=== PATIENT | male | born 1980 | race Caucasian/White ===

== ENCOUNTER → 2018-01-05 20:06 | Outpatient (CLI) | payer OTHER, SELFPAY ==
--- NOTE | 2018-01-05 20:10 | DI.RAD.S_ITS ---
PROCEDURE: XR KNEE LT 3V INDICATIONS: Pain in bilateral knees and ankles TECHNIQUE: 3 views of the knee were acquired. COMPARISON: [facility], CR, XR KNEE ARTHRITIC SERIES RT, 01/30/2017, 9:11. FINDINGS: Bones: No fractures or dislocations. No suspicious bony lesions. Mild joint space narrowing in the lateral femorotibial compartment. Soft tissues: Small joint effusion. No suspicious soft tissue calcifications. IMPRESSION: 1. No fracture or dislocation. 2. Mild joint space narrowing in the lateral femorotibial compartment. 3. Small knee joint effusion. Dictated by: Cathy Reyna M.D. on 01/06/2018 at 16:57 Approved by: Cathy Reyna M.D. on 01/06/2018 at 16:58
--- NOTE | 2018-01-05 20:10 | DI.RAD.S_ITS ---
PROCEDURE: XR ANKLE RT MIN 3V INDICATIONS: Pain in bilateral knees and ankles TECHNIQUE: 3 views of the ankle were acquired. COMPARISON: None. FINDINGS: Bones: No fractures or dislocations. Ankle mortise is normally aligned. No suspicious bony lesions. Soft tissues: No tibiotalar joint effusion. Achilles tendon appears normal. IMPRESSION: No fracture or dislocation. Dictated by: Cathy Reyna M.D. on 01/06/2018 at 16:58 Approved by: Cathy Reyna M.D. on 01/06/2018 at 17:00
--- NOTE | 2018-01-05 20:10 | DI.RAD.S_ITS ---
PROCEDURE: XR ANKLE LT MIN 3V INDICATIONS: Pain in bilateral knees and ankles TECHNIQUE: 3 views of the ankle were acquired. COMPARISON: None. FINDINGS: Bones: No fractures or dislocations. Ankle mortise is normally aligned. No suspicious bony lesions. Soft tissues: No tibiotalar joint effusion. Achilles tendon appears normal. IMPRESSION: No fracture or dislocation. Dictated by: Cathy Reyna M.D. on 01/06/2018 at 16:56 Approved by: Cathy Reyna M.D. on 01/06/2018 at 16:57
--- NOTE | 2018-01-05 20:10 | DI.RAD.S_ITS ---
PROCEDURE: XR KNEE RT 3V INDICATIONS: Pain in bilateral knees and ankles TECHNIQUE: 3 views of the knee were acquired. COMPARISON: [facility], CR, XR KNEE ARTHRITIC SERIES RT, 01/30/2017, 9:11. [facility], MR, MR KNEE RT W CON, 02/20/2017, 16:02. FINDINGS: Bones: No fractures or dislocations. No suspicious bony lesions. Soft tissues: Small joint effusion. No suspicious soft tissue calcifications. IMPRESSION: 1. No fracture or dislocation. 2. Small knee joint effusion. Dictated by: Cathy Reyna M.D. on 01/06/2018 at 17:00 Approved by: Cathy Reyna M.D. on 01/06/2018 at 17:01
== END ==
PROVIDERS: Visit Provider Physician Assistant
DX: M25.561 Pain in right knee (principal); M25.562 Pain in left knee; M25.571 Pain in right ankle and joints of right foot; M25.572 Pain in left ankle and joints of left foot; G89.29 Other chronic pain; M25.462 Effusion, left knee; M25.461 Effusion, right knee
CPT/HCPCS: 73562; 73610

== ENCOUNTER → 2020-03-14 07:56 | Outpatient (CLI) | payer OTHER, SELFPAY ==
--- NOTE | 2020-03-14 07:59 | DI.US.S_ITS ---
PROCEDURE: US ABDOMEN LIMITED INDICATIONS: LEFT LOWER QUADRANT PAIN - RULE OUT HERNIA TECHNIQUE: Real-time focused scanning was performed of the left lower quadrant/inguinal region, with image documentation. COMPARISON: None. FINDINGS: No evidence of abdominal wall hernia in the area of pain. There is a subcentimeter intramuscular focus of hypoechogenicity, possibly cystic within the deep aspect of the left rectus muscle. No increased intramuscular or surrounding vascular flow. IMPRESSION: 1. No evidence of abdominal wall hernia. 2. Tiny avascular intramuscular cyst of uncertain clinical significance or etiology. This may be incidental versus evidence of a minimal remote muscular injury. Dictated by: Aria Quan M.D. on 03/14/2020 at 8:55 Approved by: Aria Quan M.D. on 03/14/2020 at 8:59
== END ==
PROVIDERS: PCP Family Medicine; Referring Provider Physician Assistant; Visit Provider Physician Assistant
DX: R10.32 Left lower quadrant pain (principal)
CPT/HCPCS: 76705

== ENCOUNTER 2021-08-07 20:07 | Emergency (ER) | payer OTHER, SELFPAY ==
[2021-08-07 20:16] VITALS: BP 150/73; PULSE 57; RESP 20; TEMP 36.6; O2SAT 99
[2021-08-07 21:19] LABS: Alanine Aminotransferase 153 IU/L (<50); Albumin 4.6 g/dL (3.5-5.0); Albumin Globulin Ratio 1.4 (1.0-2.8); Alkaline Phosphatase 121 U/L (38-126); Aspartate Aminotransferase 98 IU/L (17-59); BUN Creatinine Ratio 18.4 (6-22); Bilirubin Total 0.9 mg/dL (0.2-1.3); Blood Urea Nitrogen 14 mg/dL (9-20); Calcium 9.9 mg/dL (8.4-10.2); Carbon Dioxide 31 mmol/L (22-32); Chloride 102 mmol/L (98-107); Estimated Glomerular Filt Rate > 60.0 mL/min (>60); Globulin 3.3 g/dL (1.7-4.1); Glucose 96 mg/dL (70-100); HEMOLYSIS 46 (0-50); Lipase 114 U/L (23-300); Potassium 4.2 mmol/L (3.4-5.1); Sodium 139 mmol/L (137-145); Total Protein 7.9 g/dL (6.3-8.2)
[2021-08-07 21:33] LABS: Add Manual Diff / Slide Review NO; Basophils Absolute Auto 100 /uL (0-100); Basophils Percent Auto 0.7 % (0-2); Eosinophils Absolute Auto 200 /uL (0-450); Eosinophils Percent Auto 2.1 % (2-4); Hemoglobin 15.3 g/dL (13.5-17.5); Lymphocytes Absolute Auto 2000 /uL (1100-4500); Lymphocytes Percent Auto 26.9 % (25-40); Mean Corpuscular HGB Conc 34.8 % (30-36); Mean Corpuscular Hemoglobin 32.3 PG (26-34); Mean Corpuscular Volume 92.8 fL (80-100); Monocytes Absolute Auto 600 /uL (0-900); Monocytes Percent Auto 8.8 % (3-14); Neutrophils Absolute Auto 4500 /uL (1500-7000); Neutrophils Percent Auto 61.5 % (50-75); Platelet Count 207 X10^3/uL (150-400); Red Blood Cell Count 4.74 X10^6/uL (4.5-5.9); Red Cell Distribution Width 12.5 % (11.6-14.8); White Blood Cell Count 7.4 X10^3/uL (4.5-11.0)
[2021-08-07] MEDS: SODIUM CHLORIDE 0.9% 1,000 ML 1000 ML IV ×2 (21:37→23:15)
--- NOTE | 2021-08-07 22:53 | ED_ITS ---
HPI - Abdominal Pain General Chief Complaint: Abdominal Pain Stated Complaint: mid uppergastric pain, hx pancreatitis Time Seen by Provider: 08/07/21 22:53 Source: patient Mode of arrival: Ambulatory Limitations: no limitations History of Present Illness HPI narrative: This is a 32-year-old male who comes in with complaint of acute onset of epigastric upper abdominal pain feels similar to when he had pancreatitis. Patient states he did have any nausea or vomiting he did make himself throw once a states he has been actually nauseated. He thought it might help him feel more comfortable. Patient denies any fevers or chills. No chest pain or shortness of breath. He denies any radiation of pain. He did have some heartburn earlier this evening which resolved. He denies diarrhea constipation. No black or bloody stools. No dysuria urgency or frequency. Patient has not had any radiation of his pain elsewhere such as his back, flanks are lower in his abdomen. He states he was told he had pancreatitis because his liver was inflamed and irritated the pancreas. Patient states he is not on any daily m edications. He has been told not to take Tylenol because of his elevated liver enzymes. He denies other allergies. He has had bilateral knee replacement this summer but no other surgeries. Former smoker. Patient states he drinks couple drinks weekly when asked more specifically he states about 4. Denies recreational drugs. He is accompanied by his today. Related Data Previous Rx's Medication Instructions Recorded tramadol 50 mg tablet 50 mg PO Q6H PRN #10 tab 08/08/21 Allergies Allergy/AdvReac Type Severity Reaction Status Date / Time acetaminophen [ACETAMINOPHEN] Allergy Severe liver Verified 03/13/20 13:31 enzymes Review of Systems Review of Systems ROS Unobtainable: All systems reviewed & are unremarkable except as noted in HPI and below Patient History Medical History Abdominal muscle strain Social History Smoking Status: Former smoker alcohol intake: current Smoking Status: Former smoker alcohol intake frequency: 0-2 drinks per day Exam Narrative Exam Narrative: GENERAL: Alert and oriented x three, male in mild distress. HEENT: Head normocephalic, atraumatic, EOMI, pupils reactive, face symmetric, moist mucous membranes NECK: Supple, full range of motion CARDIOVASCULAR: Regular rate and rhythm without murmurs, rubs or gallops. RESPIRATORY: Breath sounds equal bilaterally, no wheezes rales or rhonchi. ABDOMEN: Soft, nontender on palpation. Normoactive bowel sounds all 4 quadrants. No guarding or rebound, rigidity, no mass. Hepatosplenomegaly not appreciated on exam. Nondistended. : No CVA tenderness EXTREMITIES: Normal range of motion, no clubbing or edema. Neurovascularly intact NEUROLOGICAL: Cranial nerves II through XII grossly intact. Moving all extremities SKIN: Warm, dry, no petechiae, no rashes or lesions. Initial Vital Signs Initial Vital Signs: Vital Signs Temperature 97.9 F 08/07/21 20:16 Pulse Rate 57 L 08/07/21 20:16 Respiratory Rate 20 08/07/21 20:16 Blood Pressure 150/73 H 08/07/21 20:16 Pulse Oximetry 99 08/07/21 20:16 Course Orders Ordered: ED Orders 08/07/21 20:25 Complete Blood Count AUTO DIFF Stat Comprehensive Metabolic Panel Stat ETOH [Ethanol (ETOH)] Stat Lipase Stat 08/07/21 23:03 US abdomen limited Stat 08/08/21 00:06 CT abdomen pelvis w con Stat Discontinued Medications Sodium Chloride (Normal Saline 0.9%) 1,000 mls @ 1,000 mls/hr IV BOLUS ONE Stop: 08/07/21 22:03 Last Admin: 08/07/21 21:37 Dose: 1,000 mls/hr Documented by: ARLETTE Sodium Chloride (Normal Saline 0.9%) 1,000 mls @ 1,000 mls/hr IV BOLUS ONE Stop: 08/07/21 22:04 Last Admin: 08/07/21 23:15 Dose: 1,000 mls/hr Documented by: CHEY Ketorolac Tromethamine (Ketorolac 30 Mg/Ml Vial) 15 mg IV NOW ONE Stop: 08/07/21 23:04 Last Admin: 08/07/21 23:15 Dose: 15 mg Documented by: CHEY Pantoprazole Sodium (Pantoprazole 40 Mg Vial) 40 mg IV NOW ONE Stop: 08/07/21 23:04 Last Admin: 08/07/21 23:14 Dose: 40 mg Documented by: CHEY Reevaluation(s) Reevaluation #1: Patient had some improvement of pain with pain medication. Noted to have a possible 4 cm structure by the pancreatic head patient is agreeable to having CT scan here this evening in the emergency department. Reevaluation #2: Updated patient on CT findings. Nodular infiltrate versus nodules + enlarged periportal lymph and 1 cm secondary lymph node noted. CT imaging in 3 months is recommended. Discussed this might be the source of his pain but should follow- up. All questions answered. Patient is aware of the importance of following up with his imaging. Vital Signs Vital signs: Vital Signs - 8 hr 08/07/21 20:16 08/08/21 01:18 Temperature 97.9 F Pulse Rate 57 L 73 Respiratory Rate 20 16 Blood Pressure 150/73 H 155/82 H Pulse Oximetry 99 99 MDM - Abdominal Pain Lab Data Result diagrams: 08/07/21 20:25 08/07/21 20:25 Labs: Lab Results 08/07/21 08/07/21 08/07/21 Range/Units 20:25 20:25 20:25 WBC 7.4 (4.5-11.0) X10^3/uL RBC 4.74 (4.5-5.9) X10^6/uL Hgb 15.3 (13.5-17.5) g/dL Hct 44.0 (41-53) % MCV 92.8 (80-100) fL MCH 32.3 (26-34) PG MCHC 34.8 (30-36) % RDW 12.5 (11.6-14.8) % Plt Count 207 (150-400) X10^3/uL Neut % (Auto) 61.5 (50-75) % Lymph % (Auto) 26.9 (25-40) % [place] % (Auto) 8.8 (3-14) % Eos % (Auto) 2.1 (2-4) % Baso % (Auto) 0.7 (0-2) % Neut # (Auto) 4500 (2720-0810) /uL Lymph # (Auto) 2000 (3349-7850) /uL [place] # (Auto) 600 (0-900) /uL Eos # (Auto) 200 (0-450) /uL Baso # (Auto) 100 (0-100) /uL Sodium 139 (137-145) mmol/L Potassium 4.2 (3.4-5.1) mmol/L Chloride 102 (98-107) mmol/L Carbon Dioxide 31 (22-32) mmol/L BUN 14 (9-20) mg/dL Creatinine 0.76 (0.66-1.25) mg/dL Estimated GFR > 60.0 (>60) mL/min BUN/Creatinine Ratio 18.4 (6-22) Glucose 96 (70-100) mg/dL Calcium 9.9 (8.4-10.2) mg/dL Total Bilirubin 0.9 (0.2-1.3) mg/dL AST 98 H (17-59) IU/L ALT 153 H (<50) IU/L Alkaline Phosphatase 121 (38-126) U/L Total Protein 7.9 (6.3-8.2) g/dL Albumin 4.6 (3.5-5.0) g/dL Globulin 3.3 (1.7-4.1) g/dL Albumin/Globulin Ratio 1.4 (1.0-2.8) Lipase 114 (23-300) U/L Ethyl Alcohol < 10 ( - 10) mg/dL Imaging Data US - abdomen: Radiologist's Impression: [address] [address] Ultrasound Report Signed Patient: Rich Aranda MR#: [id number] : 1980 Acct:[id number] Age/Sex: 40 / M Date of Service: 08/07/21 Loc: ED Accession Number: [id number] ?? Procedure: US abdomen limited Ordering Provider: Sravani Umanzor D.O. PROCEDURE:? US ABDOMEN LIMITED ? INDICATIONS:? PAIN ? TECHNIQUE:? Real-time scanning was performed of the abdominal and retroperitoneal organs, with image documentation.? ? COMPARISON:? [facility], , US ABDOMEN LIMITED, 03/14/2020, 8:52. ? FINDINGS:? ? Liver:? Liver is normal in size and and demonstrates mildly increased echotexture.? Gallbladder:? Normal appearance.? No gallstones. No gallbladder wall thickening, pericholecystic fluid or sonographic Garay's sign. Biliary ducts:? Intrahepatic bile ducts are non-dilated.? Extrahepatic bile duct caliber measures 5.1 mm.? Normal is 6-7 mm or less in diameter, or 10 mm or less post-cholecystectomy.? Pancreas:? Visualized portions of the pancreas are sonographically normal.? There is a 1.9 x 1.0 x 4.1 cm hypoechoic structure adjacent to the pancreatic head. Miscellaneous:? No free abdominal fluid.? ? IMPRESSION:? ? 1. Normal gallbladder.? No gallstones or findings to suggest acute cholecystitis. 2.? Diffusely increased hepatic echotexture. This finding is most likely secondary to hepatic fatty infiltration although other hepatocellular disease may have a similar appearance. Recommend clinical correlation. 3.? A 1.9 x 1.0 x 4.1 cm hypoechoic structure adjacent to the pancreatic head, indeterminate in etiology.? CT may be helpful if clinically indicated. ? ? ? Dictated by: Cathy Reyna M.D. on 08/08/2021 at 0:09 ? ? Approved by: Cathy Reyna M.D. on 08/08/2021 at 0:13?? CT scan - abdomen/pelvis: Radiologist's Impression: [place] [address] CT Scan Report Signed Patient: Rich Aranda MR#: [id number] : 1980 Acct:[id number] Age/Sex: 40 / M Date of Service: 08/08/21 Loc: ED Accession Number: [id number] ?? Procedure: CT abdomen pelvis w con Ordering Provider: Sravani Umanzor D.O. PROCEDURE:? CT ABDOMEN PELVIS W CON ? INDICATIONS:? 4cm structure adjacent to pancreas on US, abdominal pain. ? TECHNIQUE:? After the administration of oral and IV contrast, axial sections were acquired from the lung bases to the pubic symphysis.? Coronal and sagittal reformats were performed.? For radiation dose reduction, the following was used:? automated exposure control, adjustment of mA and/or kV according to patient size. ? COMPARISON:? [facility], , US ABDOMEN LIMITED, 08/07/2021, 23:29. ? FINDINGS:? Image quality:? Excellent.? ? Lung bases:? Bibasilar atelectasis.? There are small nodules or nodular infiltrates in the right lower lobe measuring to 7 mm (series 3, image 9).? ? Heart:? No significant findings. ? ? ABDOMEN: Liver:? Liver is prominent in size measuring 20.6 cm in length.? Subtle nodular contour of liver suggesting cirrhosis.? ? Gallbladder:? Unremarkable.? ? Biliary ducts:? Unremarkable.? ? Pancreas:? Unremarkable.? Hypoechoic structure seen near the pancreatic head on ultrasound is a mildly enlarged periportal lymph node, measuring 1.3 x 3.3 cm.? Spleen:? Unremarkable.? ? Adrenal Glands:? Unremarkable.? ? Kidneys and Ureters:? Unremarkable.? ? ? Stomach and Bowel:? Stomach, small bowel loops, and colon are unremarkable.? Appendix is normal.? Sigmoid diverticulosis.? No diverticulitis. Peritoneum:? No abnormal intraperitoneal fluid.? No free air.? ? Ventral Wall: ? No hernia.? Abdominal Nodes:? Mild periportal lymphadenopathy.? In addition to the 1.3 x 3.3 cm periportal lymph node, there is a 1 cm periportal/peripancreatic lymph node between the stomach and portal vein. Vessels:? Aorta and inferior vena cava are normal in size.? ? PELVIS: Pelvic Organs:? Unremarkable.? ? Bladder:? Unremarkable.? ? Pelvic Nodes: No enlarged lymph nodes.? Miscellaneous:? Small fat containing left inguinal hernia. ? ? ? Bones:? Unremarkable.? IMPRESSION:? ? 1. Mild hepatomegaly.? Subtle nodular contour of liver suggesting cirrhosis.? 2. Hypoechoic structure adjacent to the pancreatic head seen on ultrasound is an enlarged periportal lymph node. 3. Diverticulosis without diverticulitis. 4. Nodules or nodular infiltrates in the right lower lobe, most likely inflammatory in etiology.? Recommend a 3 month follow-up CT to ensure resolution.? Dictated by: Cathy Reyna M.D. on 08/08/2021 at 0:44 ? ? Approved by: Cathy Reyna M.D. on 08/08/2021 at 0:56?? MDM Narrative Medical decision making narrative: This is a 40-year-old male who comes in with complaint of mid epigastric pain with a history of pancreatitis. Patient drinks alcohol but denies large amounts. Patient states he has had 1 prior episode of pancreatitis secondary to his liver being inflamed. He had acute onset of discomfort he did have some heartburn which has resolved. Patient and I discussed doing a dose of Protonix. Toradol for pain. He has mildly elevated liver enzymes but normal bilirubin and lipase. Plan for abdominal ultrasound to evaluate the area. Ultrasound showed this fatty infiltrate versus hepatocellular disease. Patient is also noted to have a 1.9 x 1 x 4.1 cm hypoechoic structure adjacent to the pancreatic head with patient's prior history of pancreatitis and slightly elevated liver enzymes CT ordered for further characterization. Discussed with patient he is comfortable with this plan. CT shows enlarged periportal lymph node is the structure noted on ultrasound. Patient does have some nodular sort of inflammatory changes on lung base. Recommended follow-up CT in 3 months for repeat eval. This was discussed with patient. We discussed important he has this repeat ultrasound to rule out any causes and make sure these lymph nodes are not enlarging or not having persistent or new changes of infiltrate on his lungs. We discussed that may be the enlarged notice causing his pain but there are other potential causes. Plan for short course of pain medication and patient will follow-up with primary care to set up repeat imaging. Discharge Plan Departure Patient Disposition: Home Clinical Impression: Abdominal pain, Enlarged lymph node Activity Restrictions/Additional Instructions: Follow up with your physician for recheck. Your imaging today shows a mildly enlarged lymph node at the pancreatic head amd secpmdaru mpde between the stomach and portal vein. There is also some nodular infiltrate in the right lower lobe that is most likely inflammatory but it is recommended you have a 3 month follow-up CT to ensure resolution and no increase in size. Discussed with your physician they can help arrange this so that it is followed up appropriately. You may take pain medication as prescribed. Prescription sent to [facility] in [place]. Please return for fevers, new or worsening abdominal pain, persistent vomiting, black or bloody stools, shortness of breath new chest pain or other new or concerning symptoms. Prescriptions: New tramadol 50 mg tablet 50 mg PO Q6H PRN (Reason: pain) Qty: 10 0RF Referrals: Sravani Bella DO [Primary Care Provider] -
--- NOTE | 2021-08-07 23:03 | DI.US.S_ITS ---
PROCEDURE: US ABDOMEN LIMITED INDICATIONS: PAIN TECHNIQUE: Real-time scanning was performed of the abdominal and retroperitoneal organs, with image documentation. COMPARISON: [facility], US, US ABDOMEN LIMITED, 03/14/2020, 8:52. FINDINGS: Liver: Liver is normal in size and and demonstrates mildly increased echotexture. Gallbladder: Normal appearance. No gallstones. No gallbladder wall thickening, pericholecystic fluid or sonographic Garay's sign. Biliary ducts: Intrahepatic bile ducts are non-dilated. Extrahepatic bile duct caliber measures 5.1 mm. Normal is 6-7 mm or less in diameter, or 10 mm or less post-cholecystectomy. Pancreas: Visualized portions of the pancreas are sonographically normal. There is a 1.9 x 1.0 x 4.1 cm hypoechoic structure adjacent to the pancreatic head. Miscellaneous: No free abdominal fluid. IMPRESSION: 1. Normal gallbladder. No gallstones or findings to suggest acute cholecystitis. 2. Diffusely increased hepatic echotexture. This finding is most likely secondary to hepatic fatty infiltration although other hepatocellular disease may have a similar appearance. Recommend clinical correlation. 3. A 1.9 x 1.0 x 4.1 cm hypoechoic structure adjacent to the pancreatic head, indeterminate in etiology. CT may be helpful if clinically indicated. Dictated by: Cathy Reyna M.D. on 08/08/2021 at 0:09 Approved by: Cathy Reyna M.D. on 08/08/2021 at 0:13
[2021-08-07] MEDS: PANTOPRAZOLE 40 MG VIAL IV (23:14)
[2021-08-07] MEDS: KETOROLAC 30 MG/ML VIAL 15 MG IV (23:15)
[2021-08-07 23:22] LABS: Ethanol (ETOH) < 10 mg/dL
--- NOTE | 2021-08-08 00:06 | DI.CT.S_ITS ---
PROCEDURE: CT ABDOMEN PELVIS W CON INDICATIONS: 4cm structure adjacent to pancreas on US, abdominal pain. TECHNIQUE: After the administration of oral and IV contrast, axial sections were acquired from the lung bases to the pubic symphysis. Coronal and sagittal reformats were performed. For radiation dose reduction, the following was used: automated exposure control, adjustment of mA and/or kV according to patient size. COMPARISON: [facility], US, US ABDOMEN LIMITED, 08/07/2021, 23:29. FINDINGS: Image quality: Excellent. Lung bases: Bibasilar atelectasis. There are small nodules or nodular infiltrates in the right lower lobe measuring to 7 mm (series 3, image 9). Heart: No significant findings. ABDOMEN: Liver: Liver is prominent in size measuring 20.6 cm in length. Subtle nodular contour of liver suggesting cirrhosis. Gallbladder: Unremarkable. Biliary ducts: Unremarkable. Pancreas: Unremarkable. Hypoechoic structure seen near the pancreatic head on ultrasound is a mildly enlarged periportal lymph node, measuring 1.3 x 3.3 cm. Spleen: Unremarkable. Adrenal Glands: Unremarkable. Kidneys and Ureters: Unremarkable. Stomach and Bowel: Stomach, small bowel loops, and colon are unremarkable. Appendix is normal. Sigmoid diverticulosis. No diverticulitis. Peritoneum: No abnormal intraperitoneal fluid. No free air. Ventral Wall: No hernia. Abdominal Nodes: Mild periportal lymphadenopathy. In addition to the 1.3 x 3.3 cm periportal lymph node, there is a 1 cm periportal/peripancreatic lymph node between the stomach and portal vein. Vessels: Aorta and inferior vena cava are normal in size. PELVIS: Pelvic Organs: Unremarkable. Bladder: Unremarkable. Pelvic Nodes: No enlarged lymph nodes. Miscellaneous: Small fat containing left inguinal hernia. Bones: Unremarkable. IMPRESSION: 1. Mild hepatomegaly. Subtle nodular contour of liver suggesting cirrhosis. 2. Hypoechoic structure adjacent to the pancreatic head seen on ultrasound is an enlarged periportal lymph node. 3. Diverticulosis without diverticulitis. 4. Nodules or nodular infiltrates in the right lower lobe, most likely inflammatory in etiology. Recommend a 3 month follow-up CT to ensure resolution. Dictated by: Cathy Reyna M.D. on 08/08/2021 at 0:44 Approved by: Cathy Reyna M.D. on 08/08/2021 at 0:56
[2021-08-08 01:18] VITALS: BP 155/82; PULSE 73; RESP 16; O2SAT 99
== END 2021-08-08 01:19 | disposition home or self-care (01) ==
PROVIDERS: Emergency Provider Emergency Medicine; PCP Family Medicine
DX: R10.13 Epigastric pain (principal); R59.0 Localized enlarged lymph nodes; Z87.891 Personal history of nicotine dependence
CPT/HCPCS: 74177; 76705; 80053; 80320; 83690; 85025; 96374; 96375; 99283; 99284; C9113; J1885; Q9967

== ENCOUNTER 2024-10-02 17:38 | Emergency (ER) | payer OTHER, SELFPAY ==
[2024-10-02 17:40] VITALS: BP 149/84; PULSE 66; RESP 12; TEMP 36.3; O2SAT 96; BMI 30.9
[2024-10-02 17:48] VITALS: PULSE 61; O2SAT 96
[2024-10-02 18:00] VITALS: PULSE 56; O2SAT 94
--- NOTE | 2024-10-02 18:17 | ED.RECABL ---
HPI - Recheck/Abnormal Lab/Rx General Chief Complaint: Recheck/Abnormal Lab/Rx Stated Complaint: hit an artery during lab draw Time Seen by Provider: 10/02/24 18:17 Source: patient Mode of arrival: Ambulatory History of Present Illness HPI narrative: 43-year-old gentleman with a history of hemochromatosis with weekly phlebotomy through at least November of this year. Had a blood draw earlier today with an arterial stick. He had hematoma around the site with slight amount of pain and was told that he needed to come to the emergency department. No other complaints or concerns Related Data Previous Rx's Medication Instructions Recorded tramadol 50 mg tablet 50 mg PO Q6H PRN pain #10 tabs 08/08/21 Allergies Allergy/AdvReac Type Severity Reaction Status Date / Time acetaminophen [ACETAMINOPHEN] Allergy Severe liver Verified 03/13/20 13:31 enzymes Review of Systems Review of Systems Narrative: Pertinent positive and negative findings as per HPI Patient History Medical History Abdominal muscle strain Social History Smoking Status: Never smoker alcohol intake: current Smoking Status: Never smoker alcohol intake frequency: 0-2 drinks per day Exam Initial Vital Signs Initial Vital Signs: Vital Signs Temperature 97.3 F L 10/02/24 17:40 Pulse Rate 66 10/02/24 17:40 Respiratory Rate 12 10/02/24 17:40 Blood Pressure 149/84 H 10/02/24 17:40 Pulse Oximetry 96 10/02/24 17:40 Oxygen Delivery Method Room Air 10/02/24 17:40 General: Alert appropriate in no acute distress Respiratory: Able to speak in full sentences, no obvious respiratory distress Skin: No obvious rashes, warm and dry Neurologic: Grossly intact no obvious asymmetries or abnormalities Psych: appropriate insight and affect, cooperative Extremity: Arterial stick was brachial artery on the left side. By the time I am seeing him in the emergency department I can barely see the venipuncture site and there is no obvious pulsatile mass or hematoma. He is a bit tender in the area. But I do not yet see any superficial bruising, distal pulses are appropriate Course Vital Signs Vital signs: Vital Signs - 8 hr 10/02/24 17:40 10/02/24 17:48 10/02/24 18:00 Temperature 97.3 F L Pulse Rate 66 61 56 L Respiratory Rate 12 Blood Pressure 149/84 H Pulse Oximetry 96 96 94 Oxygen Delivery Method Room Air 10/02/24 18:30 Temperature Pulse Rate 61 Respiratory Rate Blood Pressure Pulse Oximetry 94 Oxygen Delivery Method MDM - Recheck/Abnormal Lab/Rx MDM Narrative Medical decision making narrative: 43-year-old gentleman with hemochromatosis, phlebotomy this morning with arterial stick. Slight hematoma after the procedure. Blood has dissipated at this point in anticipate that he will have a bruise on the medial aspect of his arm. Slightly tender in the area there was no evidence of arterial aneurysm or continued bleeding. Reassurance is given and he is discharged Discharge Plan Departure Patient Disposition: Home Clinical Impression: Accidental puncture of artery Hemochromatosis Qualifiers: Hemochromatosis type: hereditary Qualified Code(s): E83.110 - Hereditary hemochromatosis Activity Restrictions/Additional Instructions: Thank you for coming in. I am sorry that you had the make sure event tonight. While doing venepuncture in an artery is not ideal, it also is typically not going to be problem. There was no evidence that there is a small arterial aneurysm or any continued bleeding. With a hematoma that you notice that the site, the blood has already dispersed, I suspect you will have a bruise on the inner aspect of your arm that is starts showing up in the next couple of days as the blood works as way to the surface. Warm heat to the area can be helpful. You can continue usual activities and do not need to restrict the use of the arm in any way. Prescriptions: No Action tramadol 50 mg tablet 50 mg PO Q6H PRN (Reason: pain) Qty: 10 0RF Referrals: Cheryl Perea MD [Primary Care Provider] - Stand Alone Forms: Patient Portal/API/Survey
[2024-10-02 18:30] VITALS: PULSE 61; O2SAT 94
[2024-10-02 19:00] VITALS: PULSE 53; O2SAT 95
--- NOTE | 2024-10-02 19:16 | PC.NURSE ---
Reassessed left arm that had accidental arterial draw, arm has no swelling or redness and appears similar to other arm
[2024-10-02 19:30] VITALS: PULSE 51; RESP 18; O2SAT 95
== END 2024-10-02 20:04 | disposition home or self-care (01) ==
PROVIDERS: Emergency Provider Emergency Medicine; PCP Family Medicine
DX: E83.110 Hereditary hemochromatosis (principal)
CPT/HCPCS: 99281

== ENCOUNTER → 2025-01-10 08:29 | Outpatient (CLI) | payer OTHER, SELFPAY ==
[2025-01-10 09:18] LABS: Appearance Urine UA CLEAR; Bilirubin Urine UA NEGATIVE (NEGATIVE); Color Urine UA YELLOW; Glucose Urine UA NEGATIVE (Negative); Ketones Urine UA NEGATIVE (NEGATIVE); Leukocyte Esterase Urine UA NEGATIVE (NEGATIVE); Nitrite Urine UA NEGATIVE (Negative); Occult Blood Urine UA NEGATIVE (Negative); Protein Urine UA NEGATIVE (Negative); Specific Gravity Urine UA 1.020 (1.000-1.035); Urobilinogen Urine UA 0.2 E.U./dL (0.2); pH Urine UA 5.5 (4.5-8.0)
[2025-01-10 09:46] LABS: Iron 265 ug/dL (49-181)
[2025-01-10 09:47] LABS: Alanine Aminotransferase 57 IU/L (<50); Albumin 4.5 g/dL (3.5-5.0); Albumin Globulin Ratio 1.7 (1.0-2.8); Alkaline Phosphatase 84 U/L (38-126); Blood Urea Nitrogen 16 mg/dL (9-20); Calcium 8.9 mg/dL (8.4-10.2); Carbon Dioxide 26 mmol/L (22-32); Chloride 105 mmol/L (98-107); Estimated Glomerular Filt Rate > 60 mL/min (>60); Globulin 2.6 g/dL (1.7-4.1); Glucose 98 mg/dL (70-99); HEMOLYSIS < 15 (0-50); Potassium 4.6 mmol/L (3.4-5.1); Sodium 139 mmol/L (137-145); Total Protein 7.1 g/dL (6.3-8.2)
[2025-01-10 09:59] LABS: Percent Iron Saturation 93 % (20-50); Total Iron Binding Capacity 286 ug/dL (261-462)
[2025-01-10 10:22] LABS: Ferritin 688 ng/mL (18-464)
[2025-01-10 10:25] LABS: Add Manual Diff / Slide Review NO; Hematocrit 40.3 % (41-53); Hemoglobin 13.9 g/dL (13.5-17.5); Lymphocytes Absolute Auto 1500 /uL (1100-4500); Mean Corpuscular HGB Conc 34.4 % (30-36); Mean Corpuscular Hemoglobin 34.0 PG (26-34); Mean Corpuscular Volume 98.7 fL (80-100); Platelet Count 210 X10^3/uL (150-400)
== END ==
PROVIDERS: PCP Family Medicine; Referring Provider Chiropractor; Visit Provider Chiropractor
DX: E83.119 Hemochromatosis, unspecified (principal); K76.9 Liver disease, unspecified
CPT/HCPCS: 36415; 80053; 81001; 82728; 83540; 83550; 85025